=== PATIENT | male | born 1960 | race Caucasian/White ===

== ENCOUNTER 2021-07-18 13:49 | Emergency (ER) | payer OTHER ==
[~2021-07-18] VITALS: Ht 170.2 cm; Wt 106.1 kg
[~2021-07-18 13:49] MED LIST: BENICAR; CRESTOR; Z ACTOPLUS MET; Z.0.LANTUS100 UNIT/1
[2021-07-18 14:36] LABS: BASOPHILS % 0.9 % (0.0-1.0); EOSINOPHILS # (AUTO) 0.1 (0.0-0.4); EOSINOPHILS % 1.4 % (0.0-6.0); HEMATOCRIT 35.4 % (38.2-49.6); HEMOGLOBIN 11.6 g/dL (14.0-18.0); LYMPHOCYTES # (AUTO) 1.6 (1.0-3.2); LYMPHOCYTES % 36.9 % (18.0-39.1); MEAN CORPUSCULAR HEMOGLOBIN 26.4 pg (28-32); MEAN CORPUSCULAR HGB CONC 32.8 g/dL (31-35); MEAN CORPUSCULAR VOLUME 80.6 fL (81-99); MONOCYTES # (AUTO) 0.6 (0.2-0.8); MONOCYTES % 13.9 % (4.4-11.3); NEUTROPHILS # (AUTO) 1.9 (2.1-6.9); PLATELET COUNT 548 x10e3/uL (140-360); RED BLOOD COUNT 4.39 x10e6/uL (4.3-5.7); RED CELL DISTRIBUTION WIDTH 17.6 % (11.7-14.4)
[2021-07-18 15:07] LABS: INR 1.16
[2021-07-18 15:14] LABS: ALBUMIN/GLOBULIN RATIO 0.8 (0.8-2.0); ANION GAP 16.3 mmol/L (8-16); CALCIUM 9.1 mg/dL (8.4-10.2); CREATININE, SERUM 1.16 mg/dL (0.72-1.25); POTASSIUM 4.3 mmol/L (3.5-5.1)
[2021-07-18] MEDS ORDERED: DEXTROSE 5% IV ONE ×2 (19:00→20:00)
[2021-07-18] MEDS ORDERED: ACETYLCYSTEINE IV ONE ×2 (19:00→20:00)
[2021-07-18] MEDS ORDERED: ONDANSETRON HCL INJ 2MG/ML 2ML 2 MG/ML VIAL IV STA (21:26)
[2021-07-18 21:53] VITALS: BP 117/78
== END 2021-07-18 22:00 | disposition other institution (70) ==
LOC: ER 14:05
DX: R53.1 Weakness (principal); R11.0 Nausea; K72.90 Hepatic failure, unspecified without coma; E11.65 Type 2 diabetes mellitus with hyperglycemia; I10 Essential (primary) hypertension; Z20.822 Contact with and (suspected) exposure to COVID-19
CPT/HCPCS: 36415; 74176; 76705; 80053; 82140; 83690; 85025; 85610; 99283; J2405; J7060; J7070; U0002